=== PATIENT | male | born 1975 | race African-American/Black ===

== ENCOUNTER 2023-06-10 13:23 | Inpatient (IN) | payer OTHER ==
[~2023-06-10] VITALS: Ht 177.8 cm; Wt 103.8 kg
[2023-06-10 16:42] LABS: Alanine Aminotransferase 54 U/L (7-40); Albumin 4.2 g/dL (3.2-4.8); Alkaline Phosphatase 206 U/L (46-116); Anion Gap 9.2 (5-15); Aspartate Aminotransferase 31 U/L (13-40); BUN/Creatinine Ratio 13.4 (10.0-20.0); Blood Urea Nitrogen 13 mg/dL (9-23); Calcium 9.3 mg/dL (8.7-10.4); Carbon Dioxide 23.8 mmol/L (20-30); Chloride 101 mmol/L (98-107); Glucose 91 mg/dL (74-106); Magnesium 2.2 mg/dL (1.6-2.6); Potassium 3.8 mmol/L (3.5-5.1); Sodium 134 mmol/L (136-145)
[2023-06-10 16:43] LABS: Bilirubin, Total 1.3 mg/dL (0.2-1.0); Total Protein 8.1 g/dL (5.7-8.2)
[2023-06-10 16:49] LABS: Hematocrit 33.7 % (41.0-53.0); Hemoglobin 10.6 g/dL (13.5-17.5); Mean Corpuscular Hemoglobin 24.8 pg (28.0-32.0); Mean Corpuscular Hgb Conc. 31.3 g/dL (32.0-36.0); Mean Corpuscular Volume 79.3 fL (80.0-100.0); Red Blood Cells 4.25 10^6/uL (4.5-5.90); Red Cell Distribution Width 18.6 % (11.8-14.3)
[2023-06-10 16:50] LABS: Basophils % (manual) 0 (0.0-2.0); Blast Cells 0; Eosinophils % (manual) 0 (0-7); INR 1.11 (0.9-1.15); Partial Thromboplastin Time 25.6 SEC (24.5-34.5); Promyelocytes % 0; Prothrombin Time 11.6 sec (9.3-11.8); Reactive Lymphocytes 0
[2023-06-10 17:54] LABS: CRP High Sensitivity 15.79 mg/dL (<1.0)
[2023-06-10 18:35] LABS: Band Neutrophils % (manual) 3; Large Platelets FEW; Lymphocytes % (manual) 10 (10.0-50.0); Metamyelocytes % 1; Monocytes % (manual) 9 (0-12); Myelocytes % 1; Platelet Estimate Increased
[2023-06-10] MEDS ORDERED: SODIUM CHLORIDE 0.9% 2,700 ML IV ONE (18:45)
[2023-06-10] MEDS ORDERED: VANCOMYCIN 1GM/250ML 250 ML IV ONE (19:30)
[2023-06-10] MEDS ORDERED: VANCOMYCIN PER PHARMACY 0 MG IV SCH (19:30)
[2023-06-10 19:54] LABS: Lactic Acid w/Reflex 2.2 mmol/L (0.4-2.0)
[2023-06-10] MEDS: cefTRIAXone 1GM/50ML D5W 50 ML IV SCH (20:12)
[2023-06-10 20:19] LABS: Erythrocyte Sedimentation Rate 88 mm/hr (0-20)
[2023-06-10] MEDS ORDERED: VANCOMYCIN 1GM/250ML 250 ML IV SCH (22:00)
[2023-06-11] MEDS ORDERED: ONDANSETRON HCL 4 MG/2 ML VIAL IV ONE (03:15)
[2023-06-11] MEDS ORDERED: MORPHINE SULFATE 4 MG/ML SYR/VIAL IV ONE (03:15)
[2023-06-11 05:16] LABS: Anion Gap 10.2 (5-15); Carbon Dioxide 22.8 mmol/L (20-30); Chloride 105 mmol/L (98-107); Potassium 4.1 mmol/L (3.5-5.1); Sodium 138 mmol/L (136-145)
[2023-06-11 05:22] LABS: BUN/Creatinine Ratio 17.4 (10.0-20.0); Blood Urea Nitrogen 15 mg/dL (9-23); Glucose 99 mg/dL (74-106)
[2023-06-11 06:00] VITALS: PULSE 74; RESP 12; O2SAT 97
[2023-06-11] MEDS ORDERED: MORPHINE SULFATE 4 MG/ML SYR/VIAL IV PRN (07:15)
[2023-06-11] MEDS ORDERED: VANCOMYCIN PER PHARMACY 0 MG IV SCH (07:15)
[2023-06-11] MEDS ORDERED: ONDANSETRON HCL 4 MG/2 ML VIAL IV PRN (07:15)
[2023-06-11 07:59] VITALS: PULSE 80; RESP 16; O2SAT 95
[2023-06-11] MEDS ORDERED: MORPHINE SULFATE INJ 2 MG/ml SYRG IV PRN (08:15)
[2023-06-11] MEDS ORDERED: NITROGLYCERIN 0.4 MG SL TAB SL PRN (08:15)
[2023-06-11] MEDS ORDERED: HYDROcodone-ACET 10/325MG TAB PO PRN (08:30)
[2023-06-11] MEDS ORDERED: VANCOMYCIN 1GM/250ML 250 ML IV SCH (10:00)
[2023-06-11] MEDS: methylPREDNISolone SOD SUCC 40 MG/ML VL IV SCH ×2 (10:16→22:06)
[2023-06-11] MEDS: VANCOMYCIN 1GM/250ML 250 ML IV SCH ×2 (10:17→22:06)
[2023-06-11] MEDS: NAPROXEN 500 MG TAB PO SCH ×2 (10:28→22:07)
[2023-06-11] MEDS: ENOXAPARIN SOD 40 MG/0.4 ML SYRINGE SC SCH (10:28)
[2023-06-11 13:00] VITALS: BP 130/68; PULSE 85; RESP 18; TEMP 97.9; O2SAT 95
[2023-06-11] MEDS: CYCLOBENZAPRINE HCL 10 MG TAB PO SCH ×2 (14:28→22:06)
[2023-06-11] MEDS: cefTRIAXone 1GM/50ML D5W 50 ML IV SCH (17:56)
[2023-06-11 18:00] VITALS: TEMP 36.6
[2023-06-11 20:00] VITALS: PULSE 69; RESP 18; O2SAT 95
[2023-06-11 22:00] VITALS: BP 122/68; PULSE 69; RESP 18; TEMP 97.6; O2SAT 95
[2023-06-12] VITALS (7 sets, daily range): BP systolic 109–137; BP diastolic 67–78; PULSE 60–77; RESP 16–20; TEMP 36.3–36.6; O2SAT 97–100
[2023-06-12] MEDS: CYCLOBENZAPRINE HCL 10 MG TAB PO SCH ×2 (06:26→13:56)
[2023-06-12] MEDS: NAPROXEN 500 MG TAB PO SCH (08:37)
[2023-06-12] MEDS: ENOXAPARIN SOD 40 MG/0.4 ML SYRINGE SC SCH (08:37)
[2023-06-12] MEDS: VANCOMYCIN 1GM/250ML 250 ML IV SCH (08:38)
[2023-06-12] MEDS ORDERED: methylPREDNISolone SOD SUCC 125 MG/2 ML VL IV SCH (10:00)
[2023-06-12] MEDS ORDERED: NAPR-746 PO (14:58)
[2023-06-12] MEDS ORDERED: PRED20TA2 PO (14:58)
[2023-06-14 14:20] LABS: Hepatitis A Total Antibody Positive (Negative); Hepatitis B Core Total AB Negative (Negative); Hepatitis B Surface Antibody Negative (Negative); Hepatitis B Surface Antigen Negative (Negative); Hepatitis C Antibody Negative (Negative)
== END 2023-06-12 16:00 | DRG 538 ==
LOC: ER 13:23 → EEVIPCON 13:23 → OVERFLOW 06-11 08:09 → SUATTDRO 06-11 08:14 → WEST WING 06-11 10:00
PROVIDERS: ADMIT Internal Medicine; ATTEND Internal Medicine
DX: S76.012A Strain of muscle, fascia and tendon of left hip, initial encounter (principal); E78.5 Hyperlipidemia, unspecified; D72.829 Elevated white blood cell count, unspecified; K75.9 Inflammatory liver disease, unspecified; M51.9 Unspecified thoracic, thoracolumbar and lumbosacral intervertebral disc disorder; W18.39XA Other fall on same level, initial encounter; Y93.89 Activity, other specified; Y92.89 Other specified places as the place of occurrence of the external cause; Y99.8 Other external cause status; Z80.0 Family history of malignant neoplasm of digestive organs
CPT/HCPCS: 36415; 72148; 72193; 73721; 76705; 80048; 80053; 80202; 83605; 83735; 85007; 85027; 85610; 85652; 85730; 86141; 86704; 86706; 86708; 86803; 86850; 86900; 86901; 87040; 87340; G0378; J0696; J2405